=== PATIENT | female | born 1955 | race Caucasian/White ===

== ENCOUNTER → 2016-08-30 | Outpatient (CLI) | payer OTHER ==
[~2016-08-30] MED LIST: ACET-1256 PO; ADVIN10/60 INH; ALBUAER2 INH; CHOL400C7 PO; PREVASTATIN; PREVASTATIN PO; TAMO20TA47 PO
[2016-08-30 13:56] LABS: BASO % 0.8 %; BASO ABS # 0.05 K/uL (0-0.2); COMPLETE YES; EOS % 3.9 %; HEMATOCRIT 39.4 % (37-47); IG% 0.2 %; LYMPH % 25.8 %; LYMPH ABS # 1.52 K/uL (1.2-3.4); MEAN CELL VOLUME 88.3 fL (80-100); MEAN CORPUSCULAR HEMOGLOBIN 29.1 pg (25-34); MEAN PLATELET VOLUME 12.2 fL (7.4-10.4); MONO % 7.5 %; NEUT % 61.8 %; PLATELET COUNT 202 K/uL (130-400); RED BLOOD COUNT 4.46 M/uL (4.2-5.4)
[2016-08-30 14:09] LABS: ALB/GLOB RATIO 0.9 (0.9-2); ALKALINE PHOSPHATASE 87 U/L (45-117); ALT/SGPT 27 U/L (12-78); AST/SGOT 23 U/L (15-37); BLOOD UREA NITROGEN 14 mg/dl (7-18); BUN/CREATININE RATIO 12.7 (10-20); CALCIUM 8.5 mg/dl (8.5-10.1); CARBON DIOXIDE 27 mmol/L (21-32); CHLORIDE 109 mmol/L (98-107); GLUCOSE 89 mg/dl (70-99); HDL CHOLESTEROL 67 mg/dl; SODIUM 144 mmol/L (136-145)
[2016-08-30 14:21] LABS: CHOLESTEROL 158 mg/dl (0-200); CHOLESTEROL/HDL RATIO 2.4; LDL CHOLESTEROL CALCULATED 76 mg/dl; TRIGLYCERIDES 73 mg/dl (0-150); VERY LOW DENSITY LIPOPROT CALC 15 mg/dl
== END | disposition home or self-care (01) ==
LOC: C.LABBC 09:33
PROVIDERS: ATTEND Internal Medicine Geriatric Medicine
DX: Z00.00 Encounter for general adult medical examination without abnormal findings (principal); Z11.59 Encounter for screening for other viral diseases; Z87.448 Personal history of other diseases of urinary system

== ENCOUNTER → 2017-01-24 | Outpatient (CLI) | payer OTHER ==
--- NOTE | 2017-01-24 16:06 | MAMMOGRAPHY REPORT ---
BILATERAL DIGITAL SCREENING MAMMOGRAM TOMOSYNTHESIS WITH CAD: 01/24/2017 CLINICAL HISTORY: Asymptomatic. Personal history of breast cancer. TECHNIQUE: Breast tomosynthesis in addition to standard 2D mammography was performed. Current study was also evaluated with a Computer Aided Detection (CAD) system. COMPARISON: Comparison is made to exams dated: 01/21/2016 mammogram, 01/16/2015 mammogram, 01/14/2014 m ammogram, 01/09/2013 mammogram, 07/10/2012 mammogram, and 01/09/2012 mammogram - [facility]. BREAST COMPOSITION: The tissue of both breasts is heterogeneously dense, which may obscure small mas ses. FINDINGS: There is expected architectural distortion and skin irregularity in the lower inner quadran t of the right breast, at the site of prior lumpectomy. There is a decreasing circumscribed 9 mm ova l mass in the posterior retroareolar left breast, and a stable previously biopsied 11 mm circumscribe d mass in the lower inner quadrant of the left breast, with ribbon shaped clip in place. No new susp icious mass, architectural distortion or cluster of microcalcifications is seen. IMPRESSION: ACR BI-RADS CATEGORY 1: NEGATIVE There is no mammographic evidence of malignancy. A 1 year screening mammogram is recommended. The pa tient will receive written notification of the results. Approximately 10% of breast cancers are not detected with mammography. A negative mammographic report should not delay biopsy if a clinically suggestive mass is present. Francesca Lott M.D. ay/:01/24/2017 15:32:08 [employer] Chemist: Evangelina CROWLEY(Donya)(Bessy)(JESSICA), [facility] letter sent: Normal 1/2 BI-RADS Code: ACR BI-RADS Category 1: Negative
== END | disposition home or self-care (01) ==
LOC: C.MAMM 08:31
PROVIDERS: ATTEND Internal Medicine
DX: Z12.31 Encounter for screening mammogram for malignant neoplasm of breast (principal); Z85.3 Personal history of malignant neoplasm of breast

== ENCOUNTER → 2017-10-17 | Outpatient (CLI) | payer OTHER ==
[~2017-10-17] MED LIST changes: -TAMO20TA47 PO; +TAMO20TA9 PO
[2017-10-17 10:45] LABS: BASO % 1.1 %; BASO ABS # 0.05 K/uL (0-0.2); EOS % 5.7 %; EOS ABS # 0.26 K/uL (0-0.5); HEMATOCRIT 41.2 % (37-47); HEMOGLOBIN 13.6 g/dL (12.0-16.0); IG# 0.01 K/uL (0.00-0.02); LYMPH % 27.8 %; LYMPH ABS # 1.26 K/uL (1.2-3.4); MEAN CELL VOLUME 86.9 fL (80-100); MEAN CORPUSCULAR HEMOGLOBIN 28.7 pg (25-34); MEAN PLATELET VOLUME 11.5 fL (7.4-10.4); MONO % 8.8 %; NEUT % 56.4 %; NEUT ABS # 2.55 K/uL (1.4-6.5); PLATELET COUNT 207 K/uL (130-400); RED CELL DISTRIBUTION WIDTH SD 44.7 fL (36.4-46.3); WHITE BLOOD COUNT 4.53 K/uL (4.8-10.8)
[2017-10-17 11:21] LABS: ALBUMIN 3.2 gm/dl (3.4-5.0); ALT/SGPT 18 U/L (12-78); BLOOD UREA NITROGEN 11 mg/dl (7-18); CALCIUM 8.7 mg/dl (8.5-10.1); CARBON DIOXIDE 26 mmol/L (21-32); CREATININE 1.18 mg/dl (0.60-1.20); GLUCOSE 99 mg/dl (70-99); SODIUM 138 mmol/L (136-145)
[2017-10-17 11:30] LABS: ALKALINE PHOSPHATASE 78 U/L (45-117); AST/SGOT 16 U/L (15-37); CHOLESTEROL 138 mg/dl (0-200); LDL CHOLESTEROL CALCULATED 63 mg/dl; TOTAL PROTEIN 6.7 gm/dl (6.4-8.2)
== END | disposition home or self-care (01) ==
LOC: C.LABBC 07:13
PROVIDERS: ATTEND Internal Medicine
DX: Z00.00 Encounter for general adult medical examination without abnormal findings (principal); J45.20 Mild intermittent asthma, uncomplicated; E78.5 Hyperlipidemia, unspecified; N18.3 Chronic kidney disease, stage 3 (moderate); Z68.41 Body mass index [BMI] 40.0-44.9, adult; D05.10 Intraductal carcinoma in situ of unspecified breast

== ENCOUNTER → 2018-01-26 | Outpatient (CLI) | payer OTHER ==
--- NOTE | 2018-01-26 14:36 | MAMMOGRAPHY REPORT ---
BILATERAL DIGITAL SCREENING MAMMOGRAM TOMOSYNTHESIS WITH CAD: 01/26/2018 CLINICAL HISTORY: Routine screening. Patient has no complaints. TECHNIQUE: The study was acquired using full field digital technology and interpreted from soft copy. Breast tomosynthesis in addition to standard 2D mammography was performed. Current study was also ev aluated with a Computer Aided Detection (CAD) system. COMPARISON: Comparison is made to exams dated: 01/21/2016 mammogram, 01/16/2015 mammogram, 01/14/2014 m ammogram, 01/09/2013 mammogram, 07/10/2012 mammogram, and 01/24/2017 mammogram - [facility] nter. BREAST COMPOSITION: The tissue of both breasts is heterogeneously dense, which may obscure small mass es. FINDINGS: No suspicious masses, calcifications, or areas of architectural distortion are noted in either breast . There has been no significant interval change compared to prior exams. There are stable post surgi frank changes in the right breast from prior lobectomy. Circumscribed benign-appearing mass with an as sociated biopsy microclip in the left lower inner quadrant is not significantly changed. Asymmetry w ithin the left lateral posterior breast is stable compared to prior exams dating back to at least 200 9. IMPRESSION: ACR BI-RADS CATEGORY 2: BENIGN There is no mammographic evidence of malignancy. A 1 year screening mammogram is recommended.( 019) The patient will receive written notification of the results. Some breast cancers are not detected with mammography. A negative mammographic report should not fredi y biopsy if a clinically suggestive mass is present. Freda Palomino M.D. ah/:01/26/2018 08:39:47 Public Services Assistant: Gissel Raza RT(R)(M), [facility] letter sent: Normal 1/2 BI-RADS Code: ACR BI-RADS Category 2: Benign
== END | disposition home or self-care (01) ==
LOC: C.MAMM 08:20
PROVIDERS: ATTEND Internal Medicine
DX: Z12.31 Encounter for screening mammogram for malignant neoplasm of breast (principal)